=== PATIENT | male | born 1975 | race Caucasian/White ===

== ENCOUNTER 2022-08-13 06:02 | Day surgery (SDC) | payer MEDICAID ==
[2022-08-06 15:02] LABS: EOSINOPHILS # (AUTO) 0.1 X10'3 (0-0.9); LYMPHOCYTES # (AUTO) 1.5 X10'3 (1.1-4.8); MEAN PLATELET VOLUME 7.7 FL (7.4-10.4); MONOCYTES # (AUTO) 0.7 X10'3 (0-0.9)
[2022-08-06 15:04] LABS: EOSINOPHILS % (AUTO) 2.4 % (0-6); LYMPHOCYTES % (AUTO) 30.7 % (21-51); MEAN CORPUSCULAR HEMOGLOBIN 31.9 PG (27.0-31.0); MEAN CORPUSCULAR HGB CONC 34.5 g/dL (33.0-36.5); MEAN CORPUSCULAR VOLUME 92.6 FL (78-98); MONOCYTES % (AUTO) 14.2 % (2-12); NEUTROPHILS # (AUTO) 2.5 X10'3 (1.8-7.7); NEUTROPHILS % (AUTO) 51.7 % (42-75); PRE OP HEMATOCRIT 44.3 % (42.0-52.0); PRE OP HEMOGLOBIN 15.3 g/dL (14.0-17.9); PRE OP PLATELET COUNT 220 X10'3 (140-440); RED BLOOD COUNT 4.78 X10'6 (4.70-6.10); RED CELL DISTRIBUTION WIDTH 12.9 % (11.5-14.5)
[2022-08-06 15:21] LABS: ALBUMIN 3.9 G/DL (3.4-5.0); ALBUMIN/GLOBULIN RATIO 1.1 (1.1-1.5); ALKALINE PHOSPHATASE 61 IU/L (46-116); BLOOD UREA NITROGEN 13 MG/DL (7-18); CALCIUM 8.5 MG/DL (8.5-10.1); CHLORIDE 102 MMOL/L (99-107); CREATININE 1.18 MG/DL (0.60-1.10); PRE OP ALT 33 U/L (30-65); PRE OP ANION GAP 6 (8-16); PRE OP AST 21 U/L (10-37); PRE OP BILIRUB, TOTAL 0.7 MG/DL (0.0-1.0); PRE OP GLUCOSE 104 MG/DL (70-104); PRE OP POTASSIUM 3.8 MMOL/L (3.4-5.1); PRE OP SODIUM 137 MMOL/L (135-145); TOTAL CARBON DIOXIDE 29.3 MMOL/L (24-32); TOTAL PROTEIN 7.4 G/DL (6.4-8.2); eGFR 67 ML/MIN
[~2022-08-13] VITALS: Ht 170.2 cm; Wt 82.0 kg
[~2022-08-13 06:02] MED LIST: NO HOME MEDS; ceFAZolin inj. 2,000 MG in dextrose 5%-water 100 ML IV ONE; famotidine 20mg tablet PO ONE; ringers solution, lacted 1,000 ML IV SCH
[2022-08-13] MEDS ORDERED: BUPIVAcaine 0.5% inj/PF 30 ML ONE (06:45)
[2022-08-13 07:14] VITALS: BP 129/80
[2022-08-13] MEDS ORDERED: meperidine/PF 25mg/ml syringe IV PRN ×3 (07:40)
[2022-08-13] MEDS ORDERED: ondansetron/PF 4mg/2ml inj IV PRN (07:40)
[2022-08-13] MEDS ORDERED: morphine 4 MG/ML inj SYRINge IV PRN (07:40)
[2022-08-13] MEDS ORDERED: acetaminophen 1,000mg/100ml IV 100 ML IV PRN (07:40)
[2022-08-13] MEDS ORDERED: proCHLORperazine 10 MG/2 ml inj IV PRN (07:40)
[2022-08-13] MEDS ORDERED: ketorolac trometh. 30mg/ml inj. IV ONE (07:40)
[2022-08-13] MEDS ORDERED: hydrALAZINE 20mg/ml inj. IV PRN (07:40)
[2022-08-13] MEDS ORDERED: labetalol 20mg/4ml (5mg/ml) syringe IV PRN (07:40)
[2022-08-13] MEDS ORDERED: ringers solution, lacted 1,000 ML IV SCH (07:40)
[2022-08-13] MEDS ORDERED: morphine 2 MG/ML inj. syringe IV PRN (07:40)
[2022-08-13] MEDS ORDERED: fentaNYL /PF 50mcg/ml 5ml ampule ONE (08:25)
[2022-08-13] MEDS ORDERED: midazolam 1 mg/ML 2ml injection ONE (08:25)
[2022-08-13] MEDS ORDERED: propofol inj 20 ML IV ONE ×4 (08:37→08:50)
[2022-08-13] MEDS ORDERED: BUPIVAcaine 0.5% inj/PF 30 ml vial IJ ONE (08:39)
[2022-08-13] MEDS ORDERED: LIDOcaine 0.5% (5mg/ml) 50ml vial ONE (08:50)
[2022-08-13 09:21] VITALS: BP 111/77
--- NOTE | 2022-08-13 09:21 | NUR ---
Received from OR via [facility] , accompanied by Anesthesiologist BRENDA and report given by Anesthesiolgist. PATIENT WITH 20G PIV IN LEFT UE RUNNING LR AT 100. NO DRAINAGE PRESENT TO ELBOW AND WRIST. + CSM AND FINGERS ALL PWD. 10L MASK ON WITH VSS. Addendum: 08/13/22 at 0979 by Darnell Ventura RN, RN Amended: Links added.
[2022-08-13 09:30] VITALS: BP 114/73
[2022-08-13 09:40] VITALS: BP 114/79
[2022-08-13 09:50] VITALS: BP 127/82
[2022-08-13 10:00] VITALS: BP 121/80
--- NOTE | 2022-08-13 10:11 | NUR ---
ALL DC CRITERIA HAS BEEN MET AND ALL DC INSTRUCTIONS COVERED WITHPATIENT. ALL DRESSINGS TO RIGHT UE AREA CDI. Addendum: 08/13/22 at 1024 by Darnell Ventura RN, RN Amended: Links added.
== END 2022-08-13 10:11 | disposition home or self-care (01) ==
LOC: PAS 06:02
PROVIDERS: ATTEND Orthopaedic Surgery Hand Surgery
DX: G56.01 Carpal tunnel syndrome, right upper limb (principal); G56.21 Lesion of ulnar nerve, right upper limb; Z79.899 Other long term (current) drug therapy; Z98.890 Other specified postprocedural states
CPT/HCPCS: 36415; 64718; 64719; 64721; 80053; 82948; 85025; 93005; J0690; J2250; J2704; J3010; J3490; J7030; J7060; J7120; S0020; Z7506; Z7508; Z7512; A4215; A6449

== ENCOUNTER 2023-06-15 07:47 | Day surgery (SDC) | payer MEDICAID ==
[2023-06-13 15:51] LABS: BASOPHILS # (AUTO) 0.1 X10'3 (0-0.2); EOSINOPHILS # (AUTO) 0.2 X10'3 (0-0.9); HEMOGLOBIN 14.7 g/dl (14.0-17.9); MONOCYTES # (AUTO) 0.5 X10'3 (0-0.9); NEUTROPHILS # (AUTO) 2.2 X10'3 (1.8-7.7); WHITE BLOOD COUNT 4.9 X10'3 (4.5-11.0)
[2023-06-13 15:53] LABS: BASOPHILS % (AUTO) 2.9 % (0-1); EOSINOPHILS % (AUTO) 4.8 % (0-6); HEMATOCRIT 42.5 % (42.0-52.0); LYMPHOCYTES # (AUTO) 1.9 X10'3 (1.1-4.8); MEAN CORPUSCULAR HGB CONC 34.5 g/dL (33.0-36.5); MEAN CORPUSCULAR VOLUME 92.6 FL (78-98); MEAN PLATELET VOLUME 7.9 FL (7.4-10.4); NEUTROPHILS % (AUTO) 44.3 % (42-75); PLATELET COUNT 218 X10'3 (140-440); RED BLOOD COUNT 4.59 X10'6 (4.70-6.10); RED CELL DISTRIBUTION WIDTH 13.1 % (11.5-14.5)
[2023-06-13 15:57] LABS: ANION GAP 8 (8-16); BILIRUBIN,URINE NEGATIVE (Neg); BLOOD UREA NITROGEN 15 MG/DL (7-18); BUN/CREATININE RATIO 13.8 (10.0-20.0); CHLORIDE 104 MMOL/L (99-107); CLARITY,URINE CLEAR (Clear); COLOR,URINE STRAW (Yellow); CREATININE 1.09 MG/DL (0.60-1.10); GLUCOSE 98 MG/DL (70-104); GLUCOSE, URINE NEGATIVE (Neg); KETONES,URINE NEGATIVE (Neg); LEUKOCYTE ESTERASE ,URINE NEGATIVE (Neg); NITRITES, URINE NEGATIVE (Neg); OCCULT BLOOD,URINE NEGATIVE (Neg); PH,URINE 6.5 (4.8-8.0); POTASSIUM 3.7 MMOL/L (3.5-5.1); PROTEIN,URINE NEGATIVE (Neg); SODIUM 138 MMOL/L (135-145); TOTAL CARBON DIOXIDE 25.9 MMOL/L (24-32); UROBILINOGEN,URINE 0.2 E.U/dL (0.2-1.0)
[2023-06-13 15:58] LABS: ALANINE AMINOTRANSFERASE 29 U/L (12-78); ALBUMIN/GLOBULIN RATIO 1.3 (1.1-1.5); ALKALINE PHOSPHATASE 55 IU/L (46-116); ASPARTATE AMINO TRANSFERASE 16 U/L (10-37); BILIRUBIN,TOTAL 0.8 MG/DL (0.1-1.0); CALCIUM 9.1 MG/DL (8.5-10.1); TOTAL PROTEIN 7.1 G/DL (6.4-8.2); eGFR 73 ML/MIN
[2023-06-13 16:06] LABS: UA COLLECTION TYPE CLN CATCH MIDSTREAM
[2023-06-13 16:55] LABS: PLATELET ESTIMATE NORMAL; TOTAL CELLS COUNTED 100
[~2023-06-15] VITALS: Ht 170.2 cm; Wt 78.1 kg
[2023-06-15] VITALS (12 sets, daily range): BP systolic 119–133; BP diastolic 63–80; PULSE 49–102; RESP 13–16; TEMP 98.4; O2SAT 97–100
[~2023-06-15 07:47] MED LIST changes: -NO HOME MEDS; +POLY17PO10 PO; -ceFAZolin inj. 2,000 MG in dextrose 5%-water 100 ML IV ONE; +cefazolin 2gm/D5W 100mL 100 ML IV ONE
[2023-06-15] MEDS ORDERED: BUPIVAcaine 0.5% inj/PF 30 ML ONE (13:07)
[2023-06-15] MEDS ORDERED: sevoflurane 250ml liquid IH ONE (14:26)
[2023-06-15] MEDS ORDERED: propofol 10mg/ml 20ml vial IV ONE (14:26)
[2023-06-15] MEDS ORDERED: meperidine/PF 25mg/ml syringe IV PRN ×3 (14:30)
[2023-06-15] MEDS ORDERED: ondansetron/PF 4mg/2ml inj IV PRN (14:30)
[2023-06-15] MEDS ORDERED: morphine 4 MG/ML inj SYRINge IV PRN (14:30)
[2023-06-15] MEDS ORDERED: labetalol 20mg/4ml (5mg/ml) syringe IV PRN (14:30)
[2023-06-15] MEDS ORDERED: acetaminophen 1,000mg/100ml IV 100 ML IV PRN (14:30)
[2023-06-15] MEDS ORDERED: proCHLORperazine 10 MG/2 ml inj IV PRN (14:30)
[2023-06-15] MEDS ORDERED: morphine 2 MG/ML inj. syringe IV PRN (14:30)
[2023-06-15] MEDS ORDERED: hydrALAZINE 20mg/ml inj. IV PRN (14:30)
[2023-06-15] MEDS ORDERED: ringers solution, lacted 1,000 ML IV SCH (14:30)
[2023-06-15] MEDS ORDERED: midazolam 1 mg/ML 2ml injection ONE (14:32)
[2023-06-15] MEDS ORDERED: fentaNYL /PF 50mcg/ml 5ml ampule ONE (15:00)
[2023-06-15] MEDS ORDERED: dexamethasone sod phosphate 4mg/ml inj. ONE (15:07)
[2023-06-15] MEDS ORDERED: ondansetron/PF 4mg/2ml inj ONE (15:07)
[2023-06-15] MEDS ORDERED: rocuronium 10mg/ml inj IV ONE (15:07)
[2023-06-15] MEDS ORDERED: propofol inj 20 ML IV ONE (15:07)
[2023-06-15] MEDS ORDERED: LIDOcaine 2% (20mg/ml) 5ml vial ONE (15:07)
[2023-06-15] MEDS ORDERED: ePHEDrine 50MG/ML INJ. ONE (15:07)
[2023-06-15] MEDS ORDERED: 0.9 % SODIUM CHLORIDE 10 ML VIAL ONE (15:08)
[2023-06-15] MEDS ORDERED: BUPIVAcaine 0.5% inj/PF 30 ml vial IJ ONE (15:25)
[2023-06-15] MEDS ORDERED: neostigmine methylsulfate 1 MG/ML 10ml vial ONE (16:11)
[2023-06-15] MEDS ORDERED: glycopyrrolate 0.2mg/ml inj ONE (16:11)
--- NOTE | 2023-06-15 16:30 | NUR ---
Received from OR via , accompanied by Anesthesiologist and report given by Anesthesiolgist. PATIENT A&OX4, DENIES PAIN, V/S WNL, SCD ON , PIV 20G RUE, DERMABONDED LAPS SITES CLOSED CDI TO ABDOMEN.
[2023-06-15] MEDS ORDERED: HYDROcodone/acetaminophen 5mg/325mg tablet PO ONE (17:05)
--- NOTE | 2023-06-15 18:10 | NUR ---
PATIENT A&OX4, STATES PAIN CONTROLLED, V/S WNL, SCD OFF , PIV 20G RUE D/C, DERMABONDED LAPS SITES CLOSED CDI TO ABDOMEN. PATIENT HAS VOIDED.I HAVE REVIEWED D/C INSTRUCTIONS WITH PATIENT AND THEY HAVE VERBALIZED UNDERSTANDING. PATIENT D/C HOME WITH ALL BELONGINGS AND FAMILY GAVE TRANSPORT.
== END 2023-06-15 18:10 | disposition home or self-care (01) ==
LOC: PAS 07:47
PROVIDERS: ATTEND Surgery
DX: K40.20 Bilateral inguinal hernia, without obstruction or gangrene, not specified as recurrent (principal); Z98.890 Other specified postprocedural states; Z87.891 Personal history of nicotine dependence; Z79.899 Other long term (current) drug therapy
CPT/HCPCS: 36415; 49650; 80053; 81003; 82948; 85025; 93005; C1781; J0690; J1100; J2250; J2405; J2704; J2710; J3010; J3490; J7030; J7120; S0020; S2900; Z7506; Z7508; Z7512; 85007; A4215; A4618; C1758